=== PATIENT | male | born 1980 | race Caucasian/White ===

== ENCOUNTER 2021-12-20 01:24 | Inpatient (IN) | payer OTHER ==
[2021-12-20] MEDS ORDERED: SODIUM CHLORIDE 0.9% 1,000 ML IV STA (01:32)
[2021-12-20] MEDS ORDERED: IPRATROPIUM-ALBUTEROL 3 ML NEB INHALATION PRN (01:35)
[2021-12-20] MEDS ORDERED: NALOXONE 0.4 MG/ML 1 ML VIAL IV PRN (01:35)
--- NOTE | 2021-12-20 01:35 | ED ---
Recheck HPI - General Stated Complaint: Overdose Time Seen by Provider: 12/20/21 01:27 Source: RN notes reviewed, old records reviewed Mode of arrival: EMS Limitations: physical limitation - History of Present Illness Initial Comments: This is a 41-year-old male who presents intubated for overdose. Patient is accepted from outside facility for evaluation and management. Unable to provide history from the patient patient allegedly took some unknown polysubstance or polypharmacy prior to arrival. Patient remained unresponsive at outside facility. Complaint: other (Acute restaurant failure) -: hour(s) Returns Today for: other (Acute respiratory failure accepted in transfer) Symptoms Since Prior Visit: no new symptoms Context: planned re-check Associated Symptoms: none Treatments Prior to Arrival: other medications (A she was given multiple doses of Narcan with no improvement) Review of Systems ROS Statement: Those systems with pertinent positive or pertinent negative responses have been documented in the HPI. ROS Other: All systems not noted in ROS Statement are negative. General Exam Limitations: altered mental status, physical limitation General appearance: alert, lethargic, obtunded Head exam: Present: atraumatic, normocephalic, normal inspection Eye exam: Present: normal appearance, PERRL, EOMI. Absent: scleral icterus, conjunctival injection, periorbital swelling ENT exam: Present: normal exam, mucous membranes moist Neck exam: Present: normal inspection. Absent: tenderness, meningismus, lymphadenopathy Respiratory exam: Present: normal lung sounds bilaterally. Absent: respiratory distress, wheezes, rales, rhonchi, stridor Cardiovascular Exam: Present: regular rate, normal rhythm, normal heart sounds. Absent: systolic murmur, diastolic murmur, rubs, gallop, clicks GI/Abdominal exam: Present: soft, normal bowel sounds. Absent: distended, tenderness, guarding, rebound, rigid Extremities exam: Present: normal inspection, full ROM, normal capillary refill. Absent: tenderness, pedal edema, joint swelling, calf tenderness Back exam: Present: normal inspection Neurological exam: Present: alert, oriented X3, CN II-XII intact Psychiatric exam: Present: normal affect, normal mood Skin exam: Present: warm, dry, intact, normal color. Absent: rash Course Vital Signs 12/20/21 12/20/21 01:33 01:55 Temperature 97.9 F 97.9 F Pulse Rate 83 80 Respiratory 17 20 Rate Blood Pressure 108/72 108/72 O2 Sat by Pulse 100 99 Oximetry - Reevaluation(s) Reevaluation #1: 12/20/21 02:09 Medical record is reviewed 12/20/21 02:09 Transferring paperwork is been reviewed Reevaluation #2: 12/20/21 02:09 Patient in no distress throughout ER stay - Consultations Consultation #1: Spoke with ICU regarding admission there agreeable Consultation #2: Spoke with [facility] who agree to admission Medical Decision Making - Medical Decision Making 41 male with polypharmacy and overdose. Unresponsiveness noted patient secondary to respiratory failure. Patient did ICU for further evaluation management - Lab Data Result diagrams: 12/20/21 01:51 Lab Results 12/20/21 Range/Units 01:51 WBC 19.0 H (3.8-10.6) k/uL RBC 4.94 (4.30-5.90) m/uL Hgb 15.2 (13.0-17.5) gm/dL Hct 46.2 (39.0-53.0) % MCV 93.5 (80.0-100.0) fL MCH 30.8 (25.0-35.0) pg MCHC 32.9 (31.0-37.0) g/dL RDW 14.0 (11.5-15.5) % Plt Count 253 (150-450) k/uL MPV 8.1 Neutrophils % 82 % Lymphocytes % 10 % Monocytes % 6 % Eosinophils % 1 % Basophils % 0 % Neutrophils # 15.7 H (1.3-7.7) k/uL Lymphocytes # 1.9 (1.0-4.8) k/uL Monocytes # 1.1 H (0-1.0) k/uL Eosinophils # 0.1 (0-0.7) k/uL Basophils # 0.1 (0-0.2) k/uL - EKG Data -: EKG Interpreted by Me (EKG shows sinus rhythm 78 MA 171 QRS 90 QTC 393) - Radiology Data Radiology results: report reviewed (Chest x-ray shows positive ET tube p lacement), image reviewed Critical Care Time Critical Care Time: Yes Total Critical Care Time: 31 Disposition Clinical Impression: Accidental drug overdose, Poisoning by opiates and related narcotics, other, Drug overdose, Acute respiratory failure Disposition: ADMITTED IP TO THIS [facility] Condition: Fair Is patient prescribed a controlled substance at d/c from ED?: No Referrals: None,Stated [Primary Care Provider] - 1-2 days
[2021-12-20 02:00] LABS: Basophils # (A) 0.1 k/uL (0-0.2); Basophils % (A) 0 %; Eosinophils # (A) 0.1 k/uL (0-0.7); Eosinophils % (A) 1 %; HCT 46.2 % (39.0-53.0); HGB 15.2 gm/dL (13.0-17.5); Lymphocytes # (A) 1.9 k/uL (1.0-4.8); Lymphocytes % (A) 10 %; MCH 30.8 pg (25.0-35.0); MCHC 32.9 g/dL (31.0-37.0); MCV 93.5 fL (80.0-100.0); Mean Platelet Volume 8.1; Monocytes # (A) 1.1 k/uL (0-1.0); Monocytes % (A) 6 %; Neutrophils # (A) 15.7 k/uL (1.3-7.7); Neutrophils % (A) 82 %; Platelet Count 253 k/uL (150-450); RBC 4.94 m/uL (4.30-5.90)
[2021-12-20 02:13] LABS: ALT 64 U/L (4-49); AST 68 U/L (17-59); African American GFR (CKD) >90 (>60 ml/min/1.73 sqM); Albumin 4.7 g/dL (3.5-5.0); Alkaline Phosphatase 48 U/L (38-126); Anion Gap 11 mmol/L; Blood Urea Nitrogen 21 mg/dL (9-20); Calcium 8.7 mg/dL (8.4-10.2); Carbon Dioxide 19 mmol/L (22-30); Chloride 108 mmol/L (98-107); Glucose 147 mg/dL (74-99); Lipase 142 U/L (23-300); Magnesium 1.9 mg/dL (1.6-2.3); Non-African American GFR(CKD) >90 (>60 ml/min/1.73 sqM); Phosphorus 4.6 mg/dL (2.5-4.5); Sodium 138 mmol/L (137-145); Total Bilirubin 1.3 mg/dL (0.2-1.3); Total Protein 7.8 g/dL (6.3-8.2)
[2021-12-20 02:14] LABS: ABG Base Excess -1.1 mmol/L; ABG HCO3 25 mmol/L (21-25); ABG Oxygen Saturation 99.2 % (94-97); ABG PCO2 47 mmHg (35-45); ABG PH 7.33 (7.35-7.45); ABG PO2 274 mmHg (83-108); ABG TCO2 26 mmol/L (19-24); Allen Test Performed? Yes
[2021-12-20 02:16] LABS: INR 0.9 (<1.2); Prothrombin Time 10.3 sec (9.0-12.0)
[2021-12-20 02:17] LABS: Partial Thromboplastin Time 18.9 sec (22.0-30.0)
[2021-12-20 02:27] LABS: Potassium 7.8 mmol/L (3.5-5.1)
--- NOTE | 2021-12-20 02:31 | XR ---
EXAMINATION TYPE: XR chest 1V portable DATE OF EXAM: 12/20/2021 COMPARISON: NONE HISTORY: Respiratory failure TECHNIQUE: 2 views supine FINDINGS: The endotracheal tube is 4 cm from the [place]. There is pulmonary interstitial and mild air space edema. Heart appears slightly enlarged. There is nasogastric tube in the stomach. There is some coalescent density right lower lobe. IMPRESSION: Pulmonary edema. Right lower lobe infiltrate. Tubing in good position.
[2021-12-20] MEDS ORDERED: PNEUMONIA PROTOCOL UTILIZED 1 EACH MISC PO PRN (02:38)
[2021-12-20] MEDS ORDERED: AZITHROMYCIN 500 MG in SODIUM CHLORIDE 0.9% 250 ML IVPB STA (02:38)
[2021-12-20] MEDS ORDERED: CLINDAMYCIN 600 MG in DEXTROSE 5% IN WATER 50 ML IVPB STA ×2 (02:40)
[2021-12-20 03:16] LABS: Appearance,Urine Cloudy (Clear); Bacteria,Urine Rare /hpf; Bilirubin,Urine Negative (Negative); Blood,Urine Small (Negative); Color,Urine Yellow; Glucose,Urine (UA) 2+ (Negative); Hyaline Casts,Urine 1 /lpf (0-2); Ketones,Urine Negative (Negative); Leukocyte Esterase,Urine Negative (Negative); Mucus,Urine Rare /hpf; Nitrite,Urine Negative (Negative); Protein,Urine Negative (Negative); RBC,Urine 9 /hpf (0-5); Specific Gravity,Urine 1.018 (1.001-1.035); Urobilinogen,Urine <2.0 mg/dL (<2.0); WBC,Urine 1 /hpf (0-5)
[2021-12-20 03:17] LABS: ALT 64 U/L (4-49); AST 57 U/L (17-59); African American GFR (CKD) >90 (>60 ml/min/1.73 sqM); Albumin 4.4 g/dL (3.5-5.0); Alkaline Phosphatase 55 U/L (38-126); Anion Gap 10 mmol/L; Blood Urea Nitrogen 21 mg/dL (9-20); Calcium 8.9 mg/dL (8.4-10.2); Carbon Dioxide 22 mmol/L (22-30); Chloride 107 mmol/L (98-107); Glucose 137 mg/dL (74-99); Non-African American GFR(CKD) >90 (>60 ml/min/1.73 sqM); Potassium 5.6 mmol/L (3.5-5.1); Sodium 139 mmol/L (137-145); Total Bilirubin 0.8 mg/dL (0.2-1.3); Total Protein 7.4 g/dL (6.3-8.2)
[2021-12-20 03:58] LABS: Glucose,Whole Blood 113 mg/dL (75-99)
[2021-12-20 04:32] LABS: VBG PH 7.28 (7.31-7.41)
[2021-12-20 06:18] LABS: Glucose,Whole Blood 110 mg/dL (75-99)
[2021-12-20] MEDS: SODIUM CHLORIDE 0.9% 1,000 ML IV SCH (10:32)
[2021-12-20] MEDS: ENOXAPARIN 40 MG/0.4 ML SYRINGE SQ SCH (10:38)
[2021-12-20 11:51] LABS: Glucose,Whole Blood 120 mg/dL (75-99)
[2021-12-20] MEDS: CLINDAMYCIN 600 MG in DEXTROSE 5% IN WATER 50 ML IVPB SCH ×4 (12:26→20:40)
--- NOTE | 2021-12-20 13:17 | P.CNPUL ---
<Erin Harris - Last Filed: 12/20/21 13:02> History of Present Illness Consult date: 12/20/21 Requesting physician: Sima Kent Reason for consult: hypoxemia, abnormal CXR/CT (Critical care management) Chief complaint: suspected drug overdose History of present illness: This is a 41-year-old male patient with a known history of hypertension, hyperlipidemia, diabetes mellitus, anxiety, chronic back pain leading to left leg weakness, chronic and ongoing tobacco dependence. He also has a history of heroin and crack cocaine use in the past. Last evening he was out to dinner with his and while driving home they stopped at his friend's house. He apparently went into the house while she waited in the car and when he came out go back in the car he was soon asleep. She had not initially been concerned because he falls asleep after meals often. Then she was unable to wake him and drove to [place] emergency room where the patient was mainly unresponsive requiring intubation mechanical ventilatory support. He was subsequently transferred to our emergency room and then to the ICU at 4 AM this morning. Cur rent vent settings are assist-control at a rate of 20, tidal been 450, FiO2 50% and a PEEP of 5. Morning blood gases reveal a P O2 of 274, pCO2 47 and a pH of 7.33. That was on 100% FiO2. He is intubated with a #7.5 endotracheal tube which is secured at 24 cm at the lip. He is sedated on propofol 50 mcg/kg/m. He has 0.9 normal saline running at 130 ML's per hour. Urine drug screen did reveal evidence of cocaine, opiates, benzodiazepines, a cyclic antidepressants. CAT scan of the head revealed no significant intracranial abnormality per report from the ER. He is seen in consultation in the ICU. He is arousable. He is moving all fours at times. He is reaching for the endotracheal tube. Sedation has been adjusted. His pupils are pinpoint but reactive and equal. X-ray revealed some evidence of pulmonary interstitial mild airspace edema. Some density of the right lower lobe. He's been initiated on ceftriaxone, clindamycin and azithromycin. White count 19.0. Hemoglobin 15.2. Sodium 139. Potassium 5.6. Chloride 107. Bicarb 22. BUN 21. Creatinine 0.79. Glucose 137. Troponin 0.041. ProBNP 103. Gruber virus by PCR not detected. Pro- calcitonin pending. Review of Systems ROS unobtainable: due to endotracheal tube Medications and Allergies Home Medications Medication Instructions Recorded Confirmed Type ALPRAZolam [Xanax] 0.5 mg PO DAILY 12/20/21 12/20/21 History Atorvastatin [Lipitor] 40 mg PO HS 12/20/21 12/20/21 History Celecoxib [CeleBREX] 100 mg PO BID 12/20/21 12/20/21 History DULoxetine HCL [Cymbalta] 60 mg PO DAILY 12/20/21 12/20/21 History Diclofenac Sodium 50 mg PO BID 12/20/21 12/20/21 History Dulaglutide [Trulicity] 0.75 mg SQ Q7D 12/20/21 12/20/21 History Gabapentin 600 mg PO TID 12/20/21 12/20/21 History HYDROcodone/APAP 7.5-325MG [[place]uffman 1 tab PO Q6H 12/20/21 12/20/21 History 7.5-325] Pioglitazone [Actos] 30 mg PO DAILY 12/20/21 12/20/21 History QUEtiapine [SEROquel] 100 mg PO HS 12/20/21 12/20/21 History lisinopriL 30 mg PO DAILY 12/20/21 12/20/21 History methocarbamoL [Robaxin] 1,000 mg PO Q8H PRN 12/20/21 12/20/21 History traZODone HCL 300 mg PO HS 12/20/21 12/20/21 History Allergies Allergy/AdvReac Type Severity Reaction Status Date / Time Penicillins Allergy Intermediate Swelling Verified 12/20/21 12:09 Physical Exam Vitals: Vital Signs Temp Pulse Resp BP Pulse Ox 12/20/21 07:00 72 20 113/75 98 12/20/21 06:00 75 20 109/72 98 12/20/21 05:00 76 20 130/77 98 12/20/21 04:00 98.5 F 78 20 137/71 100 12/20/21 03:00 76 20 114/75 100 12/20/21 02:15 77 20 115/84 100 12/20/21 01:55 97.9 F 80 20 108/72 99 12/20/21 01:33 97.9 F 83 17 108/72 100 Intake and Output 02/24/22 02/25/22 02/25/22 22:59 06:59 14:59 Intake Total 589.391 205.409 Output Total 500 100 Balance 89.391 105.409 Intake: IV 520 130 Sodium Chloride 0.9% 1, 520 130 000 ml @ 130 mls/hr IV . Q7H42M STA Rx#:[id number] Intake, IV Titration 69.391 75.409 Amount Clindamycin 600 mg In 50 Dextrose 5% in Water 50 ml @ 50 mls/hr IVPB ONCE STA Rx#:[id number] propofoL 1,000 mg In 19.391 75.409 Empty Bag 1 bag @ Titrate IV .Q0M SUNI Rx#: [id number] Output: Urine 500 100 Other: Voiding Method Indwelling Catheter Weight 113.9 kg GENERAL EXAM: Intubated, sedated 41-year-old male patient, comfortable in no apparent distress. HEAD: Normocephalic. EYES: Sluggish reaction of pupils, pinpoint, equal. NOSE: Clear with pink turbinates. THROAT: Oral endotracheal and gastric tube secured in place. No erythema or exudates. NECK: No masses, no JVD. CHEST: No chest wall deformity. LUNGS: Equal air entry with few scattered rhonchi, crackles in the right lung base. CVS: S1 and S2 normal with no audible murmur, regular rhythm. ABDOMEN: No hepatosplenomegaly, normal bowel sounds, no guarding or rigidity. SPINE: No scoliosis or deformity SKIN: No rashes CENTRAL NERVOUS SYSTEM: No focal deficits, tone is normal in all 4 extremities. EXTREMITIES: There is no peripheral edema. No clubbing, no cyanosis. Peripheral pulses are intact. Results - Laboratory Findings CBC and BMP: 12/20/21 01:51 12/20/21 02:45 ABG ABG pH 7.33 (7.35-7.45) L 12/20/21 02:11 ABG pCO2 47 mmHg (35-45) H 12/20/21 02:11 ABG pO2 274 mmHg (83-108) H 12/20/21 02:11 ABG O2 Saturation 99.2 % (94-97) H 12/20/21 02:11 PT/INR, D-dimer PT 10.3 sec (9.0-12.0) 12/20/21 01:51 INR 0.9 (<1.2) 12/20/21 01:51 Abnormal lab findings: Abnormal Labs 12/20/21 12/20/21 12/20/21 01:51 01:51 01:51 WBC 19.0 H Neutrophils # 15.7 H Monocytes # 1.1 H APTT 18.9 L ABG pH ABG pCO2 ABG pO2 ABG Total CO2 ABG O2 Saturation VBG pH VBG pCO2 Potassium Chloride Carbon Dioxide BUN Glucose POC Glucose (mg/dL) Plasma Lactic Acid Robert Phosphorus AST ALT Troponin I Urine Glucose (UA) 2+ H Urine Blood Small H Urine RBC 9 H Urine Bacteria Rare H Urine Mucus Rare H 12/20/21 12/20/21 12/20/21 01:51 01:51 01:51 WBC Neutrophils # Monocytes # APTT ABG pH ABG pCO2 ABG pO2 ABG Total CO2 ABG O2 Saturation VBG pH VBG pCO2 Potassium 7.8 H* Chloride 108 H Carbon Dioxide 19 L BUN 21 H Glucose 147 H POC Glucose (mg/dL) Plasma Lactic Acid Robert 3.0 H* Phosphorus 4.6 H AST 68 H ALT 64 H Troponin I 0.044 H* Urine Glucose (UA) Urine Blood Urine RBC Urine Bacteria Urine Mucus 12/20/21 12/20/21 12/20/21 02:11 02:45 02:45 WBC Neutrophils # Monocytes # APTT ABG pH 7.33 L ABG pCO2 47 H ABG pO2 274 H ABG Total CO2 26 H ABG O2 Saturation 99.2 H VBG pH VBG pCO2 Potassium 5.6 H Chloride Carbon Dioxide BUN 21 H Glucose 137 H POC Glucose (mg/dL) Plasma Lactic Acid Robert Phosphorus AST ALT 64 H Troponin I 0.047 H* Urine Glucose (UA) Urine Blood Urine RBC Urine Bacteria Urine Mucus 12/20/21 12/20/21 12/20/21 03:22 03:57 05:31 WBC Neutrophils # Monocytes # APTT ABG pH ABG pCO2 ABG pO2 ABG Total CO2 ABG O2 Saturation VBG pH 7.28 L VBG pCO2 54 H Potassium Chloride Carbon Dioxide BUN Glucose POC Glucose (mg/dL) 113 H Plasma Lactic Acid Robert Phosphorus AST ALT Troponin I 0.041 H* Urine Glucose (UA) Urine Blood Urine RBC Urine Bacteria Urine Mucus 12/20/21 06:17 WBC Neutrophils # Monocytes # APTT ABG pH ABG pCO2 ABG pO2 ABG Total CO2 ABG O2 Saturation VBG pH VBG pCO2 Potassium Chloride Carbon Dioxide BUN Glucose POC Glucose (mg/dL) 110 H Plasma Lactic Acid Robert Phosphorus AST ALT Troponin I Urine Glucose (UA) Urine Blood Urine RBC Urine Bacteria Urine Mucus - Diagnostic Findings Chest x-ray: image reviewed Assessment and Plan Assessment: 1 Acute hypoxemic respiratory failure requiring intubation mechanical ventilation on 12/19/2021 at an outside facility and subsequent transferred here for further care 2 Altered mental status secondary to suspected drug overdose with urine drug screen positive for cocaine, opiates, benzodiazepines and tricyclic antidepressants 3 History of heroin and crack use however the patient's had stated she thought he had not been using seen in quite some time 4 Leukocytosis 5 Troponin leak 6 History of hypertension 7 Hyperlipidemia 8 Diabetes mellitus 9 History of anxiety 10 History of degenerative disc disease with left lower extremity weakness Plan: The patient was seen and evaluated Chest x-ray, ABGs and labs reviewed Outside facility information reviewed Titrate the FiO2 as tolerated Continue antibiotics, bronchodilators Continue sedation for now Lovenox for DVT prophylaxis Continue saline at 75 mL per hour Continue daily interruption of sedation Follow-up chest x-ray, labs and ABGs in the a.m. We will continue to follow and make further recommendations based on his clinical status I, the cosigning physician, performed a history & physical examination of the patient. Lungs sounds with few scattered rhonchi, crackles in the right base. Maintaining good O2 saturations in the 90s on 50% FiO2 and a PEEP of 5 via the mechanical ventilator. I discussed the assessment and plan of care with my nurse practitioner, Erin Harris. I attest to the above consultation as dictated by her. I have personally seen and examined the patient, performed the documentation and the assessment and plan as written. Number of minutes spent on the visit: 20. <Jessica Quintana - Last Filed: 12/20/21 18:54> Physical Exam Vitals: Vital Signs Temp Pulse Pulse Resp BP BP Pulse Ox 12/20/21 18:00 87 20 117/70 99 12/20/21 17:00 88 21 141/76 99 12/20/21 16:00 100.0 F H 87 22 142/84 97 12/20/21 15:00 74 20 119/81 100 12/20/21 14:00 79 20 98/61 97 12/20/21 13:00 79 20 101/61 96 12/20/21 12:00 98.3 F 80 21 102/64 97 12/20/21 11:00 77 20 109/68 100 12/20/21 10:00 77 20 129/78 98 12/20/21 09:30 98.4 F 80 21 129/78 97 12/20/21 09:00 87 20 119/79 99 12/20/21 08:00 98.4 F 71 20 128/82 99 12/20/21 07:00 72 20 113/75 98 12/20/21 06:00 75 20 109/72 98 12/20/21 05:00 76 20 130/77 98 12/20/21 04:00 98.5 F 78 20 137/71 100 12/20/21 03:00 76 20 114/75 100 12/20/21 02:15 77 20 115/84 100 12/20/21 01:55 97.9 F 80 20 108/72 99 12/20/21 01:33 97.9 F 83 17 108/72 100 Intake and Output 12/20/21 12/20/21 12/20/21 06:59 14:59 22:59 Intake Total 237.867 0148.409 250 Output Total 500 670 300 Balance 89.391 425.409 -50 Intake: IV 520 820 150 Sodium Chloride 0.9% 1, 520 595 000 ml @ 130 mls/hr IV . Q7H42M STA Rx#:[id number] Sodium Chloride 0.9% 1, 225 150 000 ml @ 75 mls/hr IV . [id number] SUNI Rx#:[id number] Intake, IV Titration 69.391 275.409 100 Amount Clindamycin 600 mg In 50 Dextrose 5% in Water 50 ml @ 50 mls/hr IVPB ONCE STA Rx#:[id number] propofoL 1,000 mg In 19.391 275.409 100 Empty Bag 1 bag @ Titrate IV .Q0M SUNI Rx#: [id number] Output: Urine 500 670 300 Other: Voiding Method Indwelling Catheter Indwelling Catheter Indwelling Catheter Weight 113.9 kg 113.9 kg Results - Laboratory Findings CBC and BMP: 12/20/21 01:51 12/20/21 02:45 ABG ABG pH 7.33 (7.35-7.45) L 12/20/21 02:11 ABG pCO2 47 mmHg (35-45) H 12/20/21 02:11 ABG pO2 274 mmHg (83-108) H 12/20/21 02:11 ABG O2 Saturation 99.2 % (94-97) H 12/20/21 02:11 PT/INR, D-dimer PT 10.3 sec (9.0-12.0) 12/20/21 01:51 INR 0.9 (<1.2) 12/20/21 01:51 Abnormal lab findings: Abnormal Labs 12/20/21 12/20/21 12/20/21 01:51 01:51 01:51 WBC 19.0 H Neutrophils # 15.7 H Monocytes # 1.1 H APTT 18.9 L ABG pH ABG pCO2 ABG pO2 ABG Total CO2 ABG O2 Saturation VBG pH VBG pCO2 Potassium Chloride Carbon Dioxide BUN Glucose POC Glucose (mg/dL) Hemoglobin A1c Plasma Lactic Acid Robert Phosphorus AST ALT Troponin I Procalcitonin Urine Glucose (UA) 2+ H Urine Blood Small H Urine RBC 9 H Urine Bacteria Rare H Urine Mucus Rare H 12/20/21 12/20/21 12/20/21 01:51 01:51 01:51 WBC Neutrophils # Monocytes # APTT ABG pH ABG pCO2 ABG pO2 ABG Total CO2 ABG O2 Saturation VBG pH VBG pCO2 Potassium 7.8 H* Chloride 108 H Carbon Dioxide 19 L BUN 21 H Glucose 147 H POC Glucose (mg/dL) Hemoglobin A1c Plasma Lactic Acid Robert 3.0 H* Phosphorus 4.6 H AST 68 H ALT 64 H Troponin I 0.044 H* Procalcitonin Urine Glucose (UA) Urine Blood Urine RBC Urine Bacteria Urine Mucus 12/20/21 12/20/21 12/20/21 02:11 02:45 02:45 WBC Neutrophils # Monocytes # APTT ABG pH 7.33 L ABG pCO2 47 H ABG pO2 274 H ABG Total CO2 26 H ABG O2 Saturation 99.2 H VBG pH VBG pCO2 Potassium 5.6 H Chloride Carbon Dioxide BUN 21 H Glucose 137 H POC Glucose (mg/dL) Hemoglobin A1c Plasma Lactic Acid Robert Phosphorus AST ALT 64 H Troponin I 0.047 H* Procalcitonin Urine Glucose (UA) Urine Blood Urine RBC Urine Bacteria Urine Mucus 12/20/21 12/20/21 12/20/21 03:22 03:57 05:31 WBC Neutrophils # Monocytes # APTT ABG pH ABG pCO2 ABG pO2 ABG Total CO2 ABG O2 Saturation VBG pH 7.28 L VBG pCO2 54 H Potassium Chloride Carbon Dioxide BUN Glucose POC Glucose (mg/dL) 113 H Hemoglobin A1c Plasma Lactic Acid Robert Phosphorus AST ALT Troponin I 0.041 H* Procalcitonin Urine Glucose (UA) Urine Blood Urine RBC Urine Bacteria Urine Mucus 12/20/21 12/20/21 12/20/21 06:17 10:42 10:42 WBC Neutrophils # Monocytes # APTT ABG pH ABG pCO2 ABG pO2 ABG Total CO2 ABG O2 Saturation VBG pH VBG pCO2 Potassium Chloride Carbon Dioxide BUN Glucose POC Glucose (mg/dL) 110 H Hemoglobin A1c 7.1 H Plasma Lactic Acid Robert Phosphorus AST ALT Troponin I Procalcitonin 2.82 H Urine Glucose (UA) Urine Blood Urine RBC Urine Bacteria Urine Mucus 12/20/21 11:49 WBC Neutrophils # Monocytes # APTT ABG pH ABG pCO2 ABG pO2 ABG Total CO2 ABG O2 Saturation VBG pH VBG pCO2 Potassium Chloride Carbon Dioxide BUN Glucose POC Glucose (mg/dL) 120 H Hemoglobin A1c Plasma Lactic Acid Robert Phosphorus AST ALT Troponin I Procalcitonin Urine Glucose (UA) Urine Blood Urine RBC Urine Bacteria Urine Mucus Assessment and Plan Assessment: This is a critically care evaluation was done and more than 40 minutes. The patient was seen and evaluated and examined along with the nurse practitioner. The patient is currently sedated on propofol and he remains on a mechanical ventilator. Following our initial evaluation, the patient started having seizure activity. The patient accordingly was given Ativan. Protocol was completed and the patient was started on Keppra. A neurologic consultation will be also initiated. Meanwhile, the Zithromax was discontinued and the patient will be kept on a combination of Rocephin and clindamycin regarding possibility of an aspiration pneumonia. Follow-up chest x-ray in the morning. Follow blood gases. No plans for extubation special with underlying seizure activity. We'll continue to follow. Critically care evaluation. Time with Patient: Greater than 30
--- NOTE | 2021-12-20 13:44 | P.HPIM ---
History of Present Illness This is a 41 years old male with a known past medical history. Presents intubated. Patient could not provide information. Information were obtained from staff and records. Looks like patient presented with polypharmacy and overdose, he was unresponsive and respiratory failure. He presents with intubation for overdose. As per staff patient went with his for dinner and underwent back they visited a friend who was recently released from residential, does not know what has been dictated inside his friend house but once he came back he slept in the car and she could not pick him up so she drove him to the emergency room. The recurrent patient was prescribed Cymbalta, Xanax on [place] at home Vitas looks stable here and patient is afebrile. His FiO2 of 50% and saturation 97% Labs showing leukocytosis of 19,000, rest of CBC is unremarkab potassium elevated le. INR 0.9. PH 7.3, pCO2 slightly high as 47 and pO2 of 2. 74. On FiO2 of 100%. Creatinine normal 0.7. Potassium is elevated at 7.8 came down to 5.6. Liver enzymes not significantly elevated, bilirubin is normal 0.8. ProBNP is low 103, TSH is normal 1.4, lipase normal 142, Urine analysis showed 2+ glucose, small blood, no evidence of infection. Troponin is elevated 0.042, lactic acid normal at 1.4, glucose controlled 113 and one 10. Venous pH is slow 7.2 and pCO2 54 and PA-C on 325. Coronavirus not detected. on reviewing bad ax records: Urine drug screen was positive for benzodiazepine, cocaine, opiates and tricyclic antidepressant EKG: Showing sinus tachycardia at 115 with moderate T-wave abnormality consider anterolateral ischemia which was noticed on the the . With QTC 519. Call the test not detected, the rapid test. Urine analysis is 2+ glucose, trace is unremarkable WBCs 21.5, hemoglobin is 14.8, platelet count 281. Sodium 138, potassium 4.4, alcohol 0, amylase 60 which is within the reference range, lipase 151 which is normal, glucose elevated 387, magnesium 2.3, creatinine is 1.3, liver enzymes slightly elevated AST 39 and ALT 82, troponin is -0.0. CK is 107 which is within the reference, ammonia slightly elevated 36 As per documentation patient went to the emergency room with his old in front of the EMS secondary today, states that the patient went unresponsive while they are driving home [place] patient was abdominally breathing, purple, forming in the mouth, Narcan was given, glucose was 347, patient was breathing approximately 8 times per minute, then another 4 mg of Narcan given. It was improvement in breathing rate went up to 12. Then a third 4 mg of Narcan given. His GCS was 3 therefore patient was intubated CT of the brain showing no evidence of acute CVA intracranial hemorrhage or mass effect per report Review of Systems CONSTITUTIONAL: No fever, no malaise, no fatigue. HEENT: No recent visual problems or hearing problems. Denied any sore throat. CARDIOVASCULAR: No orthopnea, PND, no palpitations, no syncope. PULMONARY: No shortness of breath, no cough, no hemoptysis. GASTROINTESTINAL: No diarrhea, no nausea, no vomiting, no abdominal pain. Normoactive bowel sounds. NEUROLOGICAL: No headaches, no weakness, no numbness. HEMATOLOGICAL: Denies any bleeding or petechiae. GENITOURINARY: Denies any burning micturition, frequency, or urgency. MUSCULOSKELETAL/RHEUMATOLOGICAL: Denies any joint pain, swelling, or any muscle pain. ENDOCRINE: Denies any polyuria or polydipsia. Medications and Allergies Allergies Allergy/AdvReac Type Severity Reaction Status Date / Time Penicillins Allergy Intermediate Swelling Verified 12/20/21 02:23 Physical Exam Vitals: Vital Signs Temp Pulse Pulse Resp BP BP Pulse Ox 12/20/21 09:30 98.4 F 80 21 129/78 97 12/20/21 07:00 72 20 113/75 98 12/20/21 06:00 75 20 109/72 98 12/20/21 05:00 76 20 130/77 98 12/20/21 04:00 98.5 F 78 20 137/71 100 12/20/21 03:00 76 20 114/75 100 12/20/21 02:15 77 20 115/84 100 12/20/21 01:55 97.9 F 80 20 108/72 99 12/20/21 01:33 97.9 F 83 17 108/72 100 Intake and Output 12/19/21 12/20/21 12/20/21 22:59 06:59 14:59 Intake Total 589.391 205.409 Output Total 500 100 Balance 89.391 105.409 Intake: IV 520 130 Sodium Chloride 0.9% 1, 520 130 000 ml @ 130 mls/hr IV . [id number] [facility] Rx#:[id number] Intake, IV Titration 69.391 75.409 Amount Clindamycin 600 mg In 50 Dextrose 5% in Water 50 ml @ 50 mls/hr IVPB ONCE STA Rx#:[id number] propofoL 1,000 mg In 19.391 75.409 Empty Bag 1 bag @ Titrate IV .Q0M [facility] Rx#: [id number] Output: Urine 500 100 Other: Voiding Method Indwelling Catheter Weight 113.9 kg GENERAL: The patient is alert and oriented x3, not in any acute distress. Well developed, well nourished. HEENT: Pupils are round and equally reacting to light. EOMI. No scleral icterus. No conjunctival pallor. Normocephalic, atraumatic. No pharyngeal erythema. No thyromegaly. CARDIOVASCULAR: S1 and S2 present. No murmurs, rubs, or gallops. PULMONARY: Chest is clear to auscultation, no wheezing or crackles. ABDOMEN: Soft, nontender, nondistended, normoactive bowel sounds. No palpable organomegaly. MUSCULOSKELETAL: No joint swelling or deformity. EXTREMITIES: No cyanosis, clubbing, or pedal edema. NEUROLOGICAL: Gross neurological examination did not reveal any focal deficits. SKIN: No rashes. No petechiae Results CBC & Chem 7: 12/20/21 01:51 12/20/21 02:45 Labs: Abnormal Lab Results - Last 24 Hours (Table) 12/20/21 12/20/21 12/20/21 Range/Units 01:51 01:51 01:51 WBC 19.0 H (3.8-10.6) k/uL Neutrophils # 15.7 H (1.3-7.7) k/uL Monocytes # 1.1 H (0-1.0) k/uL APTT 18.9 L (22.0-30.0) sec ABG pH (7.35-7.45) ABG pCO2 (35-45) mmHg ABG pO2 (83-108) mmHg ABG Total CO2 (19-24) mmol/L ABG O2 Saturation (94-97) % VBG pH (7.31-7.41) VBG pCO2 (37-51) mmHg Potassium (3.5-5.1) mmol/L Chloride (98-107) mmol/L Carbon Dioxide (22-30) mmol/L BUN (9-20) mg/dL Glucose (74-99) mg/dL POC Glucose (mg/dL) (75-99) mg/dL Plasma Lactic Acid Robert (0.7-2.0) mmol/L Phosphorus (2.5-4.5) mg/dL AST (17-59) U/L ALT (4-49) U/L Troponin I (0.000-0.034) ng/mL Urine Glucose (UA) 2+ H (Negative) Urine Blood Small H (Negative) Urine RBC 9 H (0-5) /hpf Urine Bacteria Rare H (None) /hpf Urine Mucus Rare H (None) /hpf 12/20/21 12/20/21 12/20/21 Range/Units 01:51 01:51 01:51 WBC (3.8-10.6) k/uL Neutrophils # (1.3-7.7) k/uL Monocytes # (0-1.0) k/uL APTT (22.0-30.0) sec ABG pH (7.35-7.45) ABG pCO2 (35-45) mmHg ABG pO2 (83-108) mmHg ABG Total CO2 (19-24) mmol/L ABG O2 Saturation (94-97) % VBG pH (7.31-7.41) VBG pCO2 (37-51) mmHg Potassium 7.8 H* (3.5-5.1) mmol/L Chloride 108 H (98-107) mmol/L Carbon Dioxide 19 L (22-30) mmol/L BUN 21 H (9-20) mg/dL Glucose 147 H (74-99) mg/dL POC Glucose (mg/dL) (75-99) mg/dL Plasma Lactic Acid Robert 3.0 H* (0.7-2.0) mmol/L Phosphorus 4.6 H (2.5-4.5) mg/dL AST 68 H (17-59) U/L ALT 64 H (4-49) U/L Troponin I 0.044 H* (0.000-0.034) ng/mL Urine Glucose (UA) (Negative) Urine Blood (Negative) Urine RBC (0-5) /hpf Urine Bacteria (None) /hpf Urine Mucus (None) /hpf 12/20/21 12/20/21 12/20/21 Range/Units 02:11 02:45 02:45 WBC (3.8-10.6) k/uL Neutrophils # (1.3-7.7) k/uL Monocytes # (0-1.0) k/uL APTT (22.0-30.0) sec ABG pH 7.33 L (7.35-7.45) ABG pCO2 47 H (35-45) mmHg ABG pO2 274 H (83-108) mmHg ABG Total CO2 26 H (19-24) mmol/L ABG O2 Saturation 99.2 H (94-97) % VBG pH (7.31-7.41) VBG pCO2 (37-51) mmHg Potassium 5.6 H (3.5-5.1) mmol/L Chloride (98-107) mmol/L Carbon Dioxide (22-30) mmol/L BUN 21 H (9-20) mg/dL Glucose 137 H (74-99) mg/dL POC Glucose (mg/dL) (75-99) mg/dL Plasma Lactic Acid Robert (0.7-2.0) mmol/L Phosphorus (2.5-4.5) mg/dL AST (17-59) U/L ALT 64 H (4-49) U/L Troponin I 0.047 H* (0.000-0.034) ng/mL Urine Glucose (UA) (Negative) Urine Blood (Negative) Urine RBC (0-5) /hpf Urine Bacteria (None) /hpf Urine Mucus (None) /hpf 12/20/21 12/20/21 12/20/21 Range/Units 03:22 03:57 05:31 WBC (3.8-10.6) k/uL Neutrophils # (1.3-7.7) k/uL Monocytes # (0-1.0) k/uL APTT (22.0-30.0) sec ABG pH (7.35-7.45) ABG pCO2 (35-45) mmHg ABG pO2 (83-108) mmHg ABG Total CO2 (19-24) mmol/L ABG O2 Saturation (94-97) % VBG pH 7.28 L (7.31-7.41) VBG pCO2 54 H (37-51) mmHg Potassium (3.5-5.1) mmol/L Chloride (98-107) mmol/L Carbon Dioxide (22-30) mmol/L BUN (9-20) mg/dL Glucose (74-99) mg/dL POC Glucose (mg/dL) 113 H (75-99) mg/dL Plasma Lactic Acid Robert (0.7-2.0) mmol/L Phosphorus (2.5-4.5) mg/dL AST (17-59) U/L ALT (4-49) U/L Troponin I 0.041 H* (0.000-0.034) ng/mL Urine Glucose (UA) (Negative) Urine Blood (Negative) Urine RBC (0-5) /hpf Urine Bacteria (None) /hpf Urine Mucus (None) /hpf 12/20/21 Range/Units 06:17 WBC (3.8-10.6) k/uL Neutrophils # (1.3-7.7) k/uL Monocytes # (0-1.0) k/uL APTT (22.0-30.0) sec ABG pH (7.35-7.45) ABG pCO2 (35-45) mmHg ABG pO2 (83-108) mmHg ABG Total CO2 (19-24) mmol/L ABG O2 Saturation (94-97) % VBG pH (7.31-7.41) VBG pCO2 (37-51) mmHg Potassium (3.5-5.1) mmol/L Chloride (98-107) mmol/L Carbon Dioxide (22-30) mmol/L BUN (9-20) mg/dL Glucose (74-99) mg/dL POC Glucose (mg/dL) 110 H (75-99) mg/dL Plasma Lactic Acid Robert (0.7-2.0) mmol/L Phosphorus (2.5-4.5) mg/dL AST (17-59) U/L ALT (4-49) U/L Troponin I (0.000-0.034) ng/mL Urine Glucose (UA) (Negative) Urine Blood (Negative) Urine RBC (0-5) /hpf Urine Bacteria (None) /hpf Urine Mucus (None) /hpf Assessment and Plan Assessment: Acute hypoxic respiratory failure requiring intubation Metabolic/toxic encephalopathy Drug overdose is suspected with urine drug screen was positive for benzodiazepine, cocaine, opiates and tricyclic antidepressant Elevated troponin Hyperkalemia, mild Elevated lactic acid, came back to normal Plan: This is a pleasant 41 years old male who presents with a EMS and respiratory failure status post intubation, drug overdose is suspected. Continue with mechanical ventilation with pulmonary/critical care team Continue with IV fluids normal saline Check echocardiogram and cardiology consult Continue with antibiotic, currently on ceftriaxone and clindamycin, and Zit hromax check B12, folate, ammonia level, TSH, blood culture , Procalcitonin Repeat chest x-rays and medication were reviewed.. Continue same treatment. Continue with symptomatic treatment. Resume home medication. Monitor lytes and vitals. DVT and GI prophylaxis. Further recommendations depends on the clinical course of the patient DVT prophylaxis: SubcLovenox GI Prophylaxis: Pepcid Prognosis is guarded
[2021-12-20] MEDS ORDERED: LORazepam 2 MG/ML INJ IV STA (15:44)
[2021-12-20] MEDS: levETIRAcetam IV 1,000 MG in SALINE 1 100ML.BAG IVPB SCH ×2 (16:04→20:40)
--- NOTE | 2021-12-20 17:48 | ECHOF ---
Referral Reason:Rule out heart disease MEASUREMENTS -------- HEIGHT: 180.3 cm WEIGHT: 113.9 kg BP: 129/78 IVSd: 1.5 cm (0.6 - 1.1) LVIDd: 3.1 cm (3.9 - 5.3) LVPWd: 1.3 cm (0.6 - 1.1) IVSs: 1.7 cm LVIDs: 2.0 cm LVPWs: 1.8 cm LAESV Index (A-L): 22.83 ml/m MV E Alex: 0.72 m/s MV DecT: 266 ms MV A Alex: 1.00 m/s MV E/A Ratio: 0.72 AV maxP.81 mmHg AV meanP.22 mmHg RAP: 5.00 mmHg RVSP: 22.91 mmHg FINDINGS -------- Sinus rhythm. This was a technically difficult study with suboptimal views. Pt. on a vent. The left ventricular size is normal. There is moderate concentric left ventricular hypertrophy. O verall left ventricular systolic function is normal with, an EF between 55 - 60 %. The RV was not well visualized. Normal LA size by volume 22+/-6 ml/m2. The right atrium was not well visualized. 5.0mg of Lumason was utilized for enhancement of images Interatrial and interventricular septum intact. The aortic valve was not well visualized. There is no evidence of aortic regurgitation. There is mild aortic stenosis present. The maximum velocity across the aortic valve is 2.28m/s. Peak/mean gradient across the Aortic Valve is 20.81mmHg / 13.22mmHg. The mitral valve was not well visualized. No mitral regurgitation. Mild tricuspid regurgitation present. Right ventricular systolic pressure is normal at < 35 mmHg. The right ventricular systolic pressure, as measured by Doppler, is 22.91mmHg. The pulmonic valve was not well visualized. There is no pericardial effusion. CONCLUSIONS -------- 1. This was a technically difficult study with suboptimal views. 2. There is moderate concentric left ventricular hypertrophy. 3. Overall left ventricular systolic function is normal with, an EF between 55 - 60 %. 4. There is mild aortic stenosis present. 5. The maximum velocity across the aortic valve is 2.28m/s. 6. Mild tricuspid regurgitation present. ESCROW CLOSER: Carly Akbar RDCS
[2021-12-20 19:08] LABS: Glucose,Whole Blood 151 mg/dL (75-99)
--- NOTE | 2021-12-20 20:24 | EEG ---
ELECTROENCEPHALOGRAM REPORT DATE OF SERVICE: 12/20/2021 PREAMBLE: This is a 41-year-old male with altered mental status. Patient is having tremoring, seizure-like activity. This EEG is performed to evaluate for any epileptiform activity. EEG FINDINGS: This is a 21-channel digital EEG recorded with video component, utilizing 10/20 international system with referential and bipolar montages. The recording starts and continues with presence of mixed frequencies of moderate to high amplitude 1-2 hertz generalized delta which sometimes becomes more rhythmic in nature. Superimposed fast frequency beta activity was also seen. Background does not seem to be reactive to eye opening or closing. Occasional transient short periods of suppression lasting for one second were seen. Perhaps some superimposed sleep was also seen with presence of sleep spindles. No clear-cut epileptiform activity was seen. IMPRESSION: This is an abnormal EEG due to: 1. Background slowing of moderate to severe degree suggestive of generalized cerebral dysfunction as can be seen with toxic metabolic encephalopathy or due to diffuse structural brain abnormality. 2. Superimposed fast frequency beta is suggestive of medication effect. 3. Intermittent generalized delta becomes somewhat rhythmic, which may suggest underlying convulsive tendency. No clear-cut electrographic seizure, however, was recorded. Clinical correlation and a follow-up EEG recommended as clinically indicated. MMODL / IJN: [id number] /
[2021-12-20] MEDS: CHLORHEXIDINE GLUCONATE 15 ML CUP MUCOUS MEM SCH (20:44)
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
[2021-12-20] MEDS: LORazepam 2 MG/ML INJ IV PRN (22:13)
[2021-12-21] MEDS: LORazepam 2 MG/ML INJ IV PRN ×2 (00:05→00:18)
[2021-12-21] MEDS ORDERED: PHENobarbital SODIUM 130 MG/ML 1 ML VIAL IV ONE ×2 (00:24→01:23)
[2021-12-21] MEDS ORDERED: PHENYTOIN SODIUM 50 MG/ML IVPB STA (00:24)
[2021-12-21 00:31] LABS: Glucose,Whole Blood 123 mg/dL (75-99)
[2021-12-21] MEDS ORDERED: SODIUM CHLORIDE 0.9% IVPB STA (00:35)
[2021-12-21] MEDS ORDERED: PHENYTOIN SODIUM IVPB STA (00:35)
[2021-12-21] MEDS ORDERED: LORazepam 2 MG/ML INJ IV PRN (01:24)
[2021-12-21] MEDS: SODIUM CHLORIDE 0.9% 1,000 ML IV SCH ×2 (01:36→15:19)
[2021-12-21] MEDS ORDERED: PHENobarbital SODIUM 130 MG/ML 1 ML VIAL IV PRN (03:24)
[2021-12-21] MEDS: CLINDAMYCIN 600 MG in DEXTROSE 5% IN WATER 50 ML IVPB SCH ×4 (03:37→11:55)
[2021-12-21] MEDS ORDERED: AZITHROMYCIN 500 MG in SODIUM CHLORIDE 0.9% 250 ML IVPB SCH (05:00)
[2021-12-21 05:24] VITALS: RESP 20
[2021-12-21 05:46] LABS: Glucose,Whole Blood 129 mg/dL (75-99)
[2021-12-21 06:03] LABS: ABG Base Excess 3.7 mmol/L; ABG HCO3 28 mmol/L (21-25); ABG Oxygen Saturation 97.2 % (94-97); ABG PCO2 45 mmHg (35-45); ABG PH 7.41 (7.35-7.45); ABG PO2 91 mmHg (83-108); ABG TCO2 30 mmol/L (19-24); Allen Test Performed? Yes
[2021-12-21 06:13] LABS: Basophils % (A) 0 %; Eosinophils # (A) 0.1 k/uL (0-0.7); Eosinophils % (A) 1 %; HGB 13.3 gm/dL (13.0-17.5); Lymphocytes # (A) 1.8 k/uL (1.0-4.8); Lymphocytes % (A) 17 %; MCH 30.7 pg (25.0-35.0); MCHC 33.3 g/dL (31.0-37.0); MCV 92.3 fL (80.0-100.0); Mean Platelet Volume 7.8; Monocytes # (A) 0.9 k/uL (0-1.0); Monocytes % (A) 8 %; Neutrophils # (A) 7.5 k/uL (1.3-7.7); Neutrophils % (A) 72 %; Platelet Count 182 k/uL (150-450); RBC 4.33 m/uL (4.30-5.90); RDW 13.4 % (11.5-15.5); WBC 10.4 k/uL (3.8-10.6)
[2021-12-21 06:34] LABS: ALT 41 U/L (4-49); AST 25 U/L (17-59); African American GFR (CKD) >90 (>60 ml/min/1.73 sqM); Albumin 3.3 g/dL (3.5-5.0); Alkaline Phosphatase 48 U/L (38-126); Anion Gap 5 mmol/L; Blood Urea Nitrogen 12 mg/dL (9-20); Calcium 7.6 mg/dL (8.4-10.2); Carbon Dioxide 26 mmol/L (22-30); Chloride 107 mmol/L (98-107); Glucose 148 mg/dL (74-99); Magnesium 1.9 mg/dL (1.6-2.3); Non-African American GFR(CKD) >90 (>60 ml/min/1.73 sqM); Phosphorus 2.6 mg/dL (2.5-4.5); Potassium 3.7 mmol/L (3.5-5.1); Sodium 138 mmol/L (137-145); Total Bilirubin 0.6 mg/dL (0.2-1.3); Total Protein 5.9 g/dL (6.3-8.2)
--- NOTE | 2021-12-21 07:24 | XR ---
EXAMINATION TYPE: XR chest 1V portable DATE OF EXAM: 12/21/2021 COMPARISON: Chest x-ray 12/20/2021 HISTORY: Intubated TECHNIQUE: Single frontal view of the chest is obtained. FINDINGS: Endotracheal tube and NG tube are overlying appropriate positions. There are overlying art ifacts, leads. There is no evident pneumothorax or sizable effusion. Cardiac mediastinal silhouette i s likely stable. Lung volumes are low, patient is rotated. Patchy basilar density persists, interstit ium is increased. IMPRESSION: Expiratory rotated exam, correlate for possible interstitial edema, difficult to exclude basilar effusion versus pneumonia, atelectasis or edema
[2021-12-21] MEDS: ENOXAPARIN 40 MG/0.4 ML SYRINGE SQ SCH (08:58)
[2021-12-21] MEDS: CHLORHEXIDINE GLUCONATE 15 ML CUP MUCOUS MEM SCH (08:58)
[2021-12-21] MEDS: levETIRAcetam IV 1,000 MG in SALINE 1 100ML.BAG IVPB SCH (08:58)
[2021-12-21 09:03] VITALS: BP 95/59
--- NOTE | 2021-12-21 09:41 | XR ---
EXAMINATION TYPE: XR chest 1V confirm line [facility] DATE OF EXAM: 12/21/2021 COMPARISON: Chest x-ray 12/21/2021 HISTORY: Status post central venous catheter placement TECHNIQUE: Single frontal view of the chest is obtained. FINDINGS: There has been interval placement of a left jugular central venous catheter, distal tip is at the cavoatrial junction. There is no evident pneumothorax or significant interval change. There i s overlying artifact. IMPRESSION: No evident complication status post central venous catheter placement.
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
--- NOTE | 2021-12-21 10:52 | P.PN ---
Subjective Progress Note Date: 12/21/21 I am seeing the patient for the first time during this admission. Please refer to Dr. Rosa's (Neuro-hospitalist) note for further details. Per the patient's nurse the patient had 3 seizures overnight and the last seizure was about 1 AM today. Per the patient nurse the patient had the shaking of his extremities, biting on the tube. The first episode lasted 2 minutes then the second episode lasted 10 minutes and the third episode lasted 5 minutes which was at [address] Rosa was contacted and per nurse he he wanted the patient to be transferred for long-term EEG but to be addressed in the morning. In the mean time he loaded the patient with Dilantin 2 g, patient was given also 10 mg Ativan. And the patient was continued on Keppra 1 g twice a day scheduled. Patient is currently on IV Prpofol 75mcg/kg/min. Objective - Vital Signs Vital signs: Vital Signs Temp 98.1 F 12/21/21 08:00 Pulse 68 12/21/21 10:00 Resp 20 12/21/21 10:00 BP 95/59 12/21/21 09:00 Pulse Ox 98 12/21/21 10:00 Intake & Output 12/20/21 12/21/21 12/21/21 18:59 06:59 18:59 Intake Total 0386.992 6458.007 425 Output Total 1055 1165 95 Balance 365.409 489.007 330 Weight 113.9 kg 118.5 kg Intake: IV 1045 1225 325 Clindamycin 600 mg In 50 Dextrose 5% in Water 50 ml @ 50 mls/hr IVPB Q8H [facility] Rx#:[id number] Phenytoin Sodium Inj 2, 100 000 mg In Sodium Chloride 0.9% 100 ml @ 200 mls/hr IVPB ONCE STA Rx#: [id number] Sodium Chloride 0.9% 1, 595 000 ml @ 130 mls/hr IV . Q7H42M [facility] Rx#:[id number] Sodium Chloride 0.9% 1, 450 975 225 000 ml @ 75 mls/hr IV . [id number] [facility] Rx#:[id number] levETIRAcetam IV 1,000 mg 100 100 In Saline 1 100ml.bag @ 400 mls/hr IVPB Q12HR [facility] Rx#:[id number] Intake, IV Titration 375.409 429.007 100 Amount propofoL 1,000 mg In 375.409 429.007 100 Empty Bag 1 bag @ Titrate IV .Q0M [facility] Rx#: [id number] Output: Urine 1055 1165 95 Other: Voiding Method Indwelling Catheter Indwelling Catheter Indwelling Catheter ABP, PAP, CO, CI - Last Documented Arterial Blood Pressure 118/61 - Exam GENERAL: The patient is lying in bed and does not seem in acute distress. LUNG: Intubated on vent. NEUROLOGICAL: Limited because of his condition and is on IV Prpofol 75mcg/kg/min. Higher mental function: The patient is comatose. GCS 3 ( E1, VT1, M1). Not following commands. Cranial nerves: I had to manually open his eyes. The primary eyes are midline. The pupils are round (2mm), equal and reactive to light and accommodation. Is breathing over the vent. Positive gag reflex. Motor: Could not assess strength. Normal tone. No spontaneous movement noted. Cerebellum: Unable to assess. Sensation: Could not assess light touch. - Labs CBC & Chem 7: 12/21/21 05:55 12/21/21 05:55 Labs: Abnormal Lab Results - Last 24 Hours (Table) 12/20/21 12/20/21 12/20/21 Range/Units 10:42 10:42 11:49 ABG HCO3 (21-25) mmol/L ABG Total CO2 (19-24) mmol/L ABG O2 Saturation (94-97) % Glucose (74-99) mg/dL POC Glucose (mg/dL) 120 H (75-99) mg/dL Hemoglobin A1c 7.1 H (0.0-6.0) % Calcium (8.4-10.2) mg/dL Total Protein (6.3-8.2) g/dL Albumin (3.5-5.0) g/dL Procalcitonin 2.82 H (0.02-0.09) ng/mL 12/20/21 12/21/21 12/21/21 Range/Units 19:07 00:29 05:45 ABG HCO3 (21-25) mmol/L ABG Total CO2 (19-24) mmol/L ABG O2 Saturation (94-97) % Glucose (74-99) mg/dL POC Glucose (mg/dL) 151 H 123 H 129 H (75-99) mg/dL Hemoglobin A1c (0.0-6.0) % Calcium (8.4-10.2) mg/dL Total Protein (6.3-8.2) g/dL Albumin (3.5-5.0) g/dL Procalcitonin (0.02-0.09) ng/mL 12/21/21 12/21/21 Range/Units 05:54 05:55 ABG HCO3 28 H (21-25) mmol/L ABG Total CO2 30 H (19-24) mmol/L ABG O2 Saturation 97.2 H (94-97) % Glucose 148 H (74-99) mg/dL POC Glucose (mg/dL) (75-99) mg/dL Hemoglobin A1c (0.0-6.0) % Calcium 7.6 L (8.4-10.2) mg/dL Total Protein 5.9 L (6.3-8.2) g/dL Albumin 3.3 L (3.5-5.0) g/dL Procalcitonin (0.02-0.09) ng/mL Assessment and Plan Assessment: * Clinical status epilepticus overnight on 12/20 till 12/21/2021 (had 3 episodes and last episode was 1 am)--resolved * Altered mental status, likely due to toxic metabolic, perhaps some hypoxic encephalopathy, status epilepticus and reasons mentioned below. * Seizure-like activity witnessed. It was reported more tremoring rather than clear-cut seizure on initial presentation. * Polysubstance abuse. Urine drug screen positive for benzodiazepine, cocaine, opiates and tricyclics. * Elevated liver enzymes--resolved * Mildly elevated ammonia 36/32--resolved Plan: * Stat EEG on 12/20/2021 was performed, which is reported as background slowing of moderate to severe degree, consistent with encephalopathy. Some rhythmic delta was seen, which may indicate convulsive tendency. However no clear-cut epileptiform activity was seen. * Patient has 3 seizure-like activity overnight and last episode was [address] Rosa, he recommended the patient to be transferred for terminal supervisor EEG and I do agree. * I increased Keppra from 1000mg to 1500mg bid. * Repeat CT head is ordered by ICU team and is pending. * Placed the patient on thiamine 100mg daily. * On Ativan 1mg PRN for seizure. * Placed on seizure precaution, seizure pads and every hour neuro checks * Watch for signs of opiate withdrawal. * We'll defer the rest of the medical management to the primary and ICU team. I commended the patient to be transferred for long-term EEG. The plan was discussed with the primary team and patient's nurse. Attila Ham M.D. Neuro-hospitalist Time with Patient: Less than 30
[2021-12-21] MEDS ORDERED: THIAMINE 100 MG/ML 2 ML VIAL IVP SCH (11:15)
--- NOTE | 2021-12-21 11:25 | CT ---
EXAMINATION TYPE: CT brain wo con DATE OF EXAM: 12/21/2021 COMPARISON: CT brain from outside institution dated 12/19/2021 HISTORY: Seizures CT DLP: 1107.4 mGycm. Automated Exposure Control for Dose Reduction was Utilized. TECHNIQUE: CT scan of the head is performed without contrast. FINDINGS: There is no acute intracranial hemorrhage, mass effect, or midline shift identified. The ventricles and sulci are within normal limits in size. The globes are intact and the visualized sin uses are clear. Some low-attenuation anterior to the anterior oropharyngeal soft tissues may be relat ed to secretions, endotracheal tube is in place. There are cerebral vascular calcifications. IMPRESSION: No acute intracranial hemorrhage, mass effect, or midline shift is seen. Additional find ings above.
[2021-12-21 11:45] LABS: Glucose,Whole Blood 123 mg/dL (75-99)
--- NOTE | 2021-12-21 12:06 | P.PN ---
Subjective Progress Note Date: 12/21/21 This is a 41-year-old male patient with a known history of hypertension, hyperl ipidemia, diabetes mellitus, anxiety, chronic back pain leading to left leg weakness, chronic and ongoing tobacco dependence. He also has a history of heroin and crack cocaine use in the past. Last evening he was out to dinner with his and while driving home they stopped at his friend's house. He apparently went into the house while she waited in the car and when he came out go back in the car he was soon asleep. She had not initially been concerned because he falls asleep after meals often. Then she was unable to wake him and drove to [place] emergency room where the patient was mainly unresponsive requiring intubation mechanical ventilatory support. He was subsequently transferred to our emergency room and then to the ICU at 4 AM this morning. Current vent settings are assist-control at a rate of 20, tidal been 450, FiO2 50% and a PEEP of 5. Morning blood gases reveal a P O2 of 274, pCO2 47 and a pH of 7.33. That was on 100% FiO2. He is intubated with a #7.5 endotracheal tube which is secured at 24 cm at the lip. He is sedated on propofol 50 mcg/kg/m. He has 0.9 normal saline running at 130 ML's per hour. Urine drug screen did reveal evidence of cocaine, opiates, benzodiazepines, a cyclic antidepressants. CAT scan of the head revealed no significant intracranial abnormality per report from the ER. He is seen in consultation in the ICU. He is arousable. He is moving all fours at times. He is reaching for the endotracheal tube. Sedation has been adjusted. His pupils are pinpoint but reactive and equal. X-ray revealed some evidence of pulmonary interstitial mild airspace edema. Some density of the right lower lobe. He's been initiated on ceftriaxone, clindamycin and azithromycin. White count 19.0. Hemoglobin 15.2. Sodium 139. Potassium 5.6. Chloride 107. Bicarb 22. BUN 21. Creatinine 0.79. Glucose 137. Troponin 0.041. ProBNP 103. Gruber virus by PCR not detected. Pro- calcitonin pending. 12/21/2021, the patient is being seen for a follow-up. This is a 41-year-old male patient who presented to us with drug overdose and being unresponsive. He is known to have hypertension for lipidemia diabetes mellitus and chronic back p ain and he is a smoker. He has history of use of heroin and crack cocaine in the past. Noted the patient has been already intubated and placed on a mechanical ventilator. The patient started having severe episodes yesterday and I started the patient on Trying combination to propofol that he was already receiving for sedation. Nevertheless, overnight, he did have 3 further episodes of seizures. The first episode lasted for 2 minutes and then the second episodes for 10 minutes and the third episode was 5 minutes and the last episode was around 1 AM. Neurology was involved in the case and the patient was given 2 g of IV Dilantin and the patient was also given phenobarbital 1 g and he was given a total of 10 mg Ativan IV push. Currently is still on Keppra 1 g twice a day and Propulsid running at 75 Garrett respiratory per minute. EEG was done yesterday that showed no active seizure activity or ongoing seizure activity. Neurologist on the case. CAT scan of the brain that was done and the hospital was negative. A repeat CAT scan of the brain will be done today. Meanwhile, the patient remains on a mechanical ventilator. This morning is an assist- control mode at the rate of 20, tidal volume of 450, FiO2 of 50% with a PEEP of 5. Blood gases from today shows a pH of 7.41 with a pCO2 of 45 and pO2 of 91. The patient is hemodynamically stable. The triple-lumen catheter was established in his left IJ. An arterial line was also established. He is afebrile. He is covered for aspiration pneumonia with a combination of Rocephin and Clindamycin. The white cell count is at 10.4 with a hemoglobin of 13.3. Rest of the electrodes are all within normal limits. Renal function creatinine is stable at 0.7. Rest electrodes are all within normal limits. LFTs are also within normal. Objective - Vital Signs Vital signs: Vital Signs Temp 98.1 F 12/21/21 08:00 Pulse 68 12/21/21 10:00 Resp 20 12/21/21 10:00 BP 95/59 12/21/21 09:00 Pulse Ox 98 12/21/21 10:00 Intake & Output 12/20/21 12/21/21 12/21/21 18:59 06:59 18:59 Intake Total 5703.702 6836.007 600 Output Total 1055 1165 170 Balance 365.409 489.007 430 Weight 113.9 kg 118.5 kg Intake: IV 1045 1225 400 Clindamycin 600 mg In 50 Dextrose 5% in Water 50 ml @ 50 mls/hr IVPB Q8H [facility] Rx#:[id number] Phenytoin Sodium Inj 2, 100 000 mg In Sodium Chloride 0.9% 100 ml @ 200 mls/hr IVPB ONCE [facility] Rx#: [id number] Sodium Chloride 0.9% 1, 595 000 ml @ 130 mls/hr IV . Q7H42M [facility] Rx#:[id number] Sodium Chloride 0.9% 1, 450 975 300 000 ml @ 75 mls/hr IV . [id number] [facility] Rx#:[id number] levETIRAcetam IV 1,000 mg 100 100 In Saline 1 100ml.bag @ 400 mls/hr IVPB Q12HR [facility] Rx#:[id number] Intake, IV Titration 375.409 429.007 200 Amount propofoL 1,000 mg In 375.409 429.007 200 Empty Bag 1 bag @ Titrate IV .Q0M [facility] Rx#: [id number] Output: Urine 1055 1165 170 Other: Voiding Method Indwelling Catheter Indwelling Catheter Indwelling Catheter ABP, PAP, CO, CI - Last Documented Arterial Blood Pressure 118/61 - Exam GENERAL EXAM: Intubated, sedated 41-year-old male patient, comfortable in no apparent distress. Orogastric and orotracheal tube are both in place and the patient has a left IJ triple-lumen catheter in place. HEAD: Normocephalic. EYES: Sluggish reaction of pupils, pinpoint, equal. NOSE: Clear with pink turbinates. THROAT: Oral endotracheal and gastric tube secured in place. No erythema or exudates. NECK: No masses, no JVD. CHEST: No chest wall deformity. LUNGS: Equal air entry with few scattered rhonchi, crackles in the right lung base. CVS: S1 and S2 normal with no audible murmur, regular rhythm. ABDOMEN: No hepatosplenomegaly, normal bowel sounds, no guarding or rigidity. SPINE: No scoliosis or deformity SKIN: No rashes CENTRAL NERVOUS SYSTEM: No focal deficits, tone is normal in all 4 extremities. The pupils are around 6-7 mm in size and there is reaction to light. Negative Babinski. Negative clonus. Not withdrawing to painful stimulation. No jerky body movements activity. No selectivity of his current clinical grounds. Reflexes are equal and symmetrical bilaterally. EXTREMITIES: There is no peripheral edema. No clubbing, no cyanosis. Peripheral pulses are intact. - Labs CBC & Chem 7: 12/21/21 05:55 12/21/21 05:55 Labs: Abnormal Lab Results - Last 24 Hours (Table) 12/20/21 12/20/21 12/20/21 Range/Units 10:42 10:42 19:07 ABG HCO3 (21-25) mmol/L ABG Total CO2 (19-24) mmol/L ABG O2 Saturation (94-97) % Glucose (74-99) mg/dL POC Glucose (mg/dL) 151 H (75-99) mg/dL Hemoglobin A1c 7.1 H (0.0-6.0) % Calcium (8.4-10.2) mg/dL Total Protein (6.3-8.2) g/dL Albumin (3.5-5.0) g/dL Procalcitonin 2.82 H (0.02-0.09) ng/mL 12/21/21 12/21/21 12/21/21 Range/Units 00:29 05:45 05:54 ABG HCO3 28 H (21-25) mmol/L ABG Total CO2 30 H (19-24) mmol/L ABG O2 Saturation 97.2 H (94-97) % Glucose (74-99) mg/dL POC Glucose (mg/dL) 123 H 129 H (75-99) mg/dL Hemoglobin A1c (0.0-6.0) % Calcium (8.4-10.2) mg/dL Total Protein (6.3-8.2) g/dL Albumin (3.5-5.0) g/dL Procalcitonin (0.02-0.09) ng/mL 12/21/21 12/21/21 Range/Units 05:55 11:43 ABG HCO3 (21-25) mmol/L ABG Total CO2 (19-24) mmol/L ABG O2 Saturation (94-97) % Glucose 148 H (74-99) mg/dL POC Glucose (mg/dL) 123 H (75-99) mg/dL Hemoglobin A1c (0.0-6.0) % Calcium 7.6 L (8.4-10.2) mg/dL Total Protein 5.9 L (6.3-8.2) g/dL Albumin 3.3 L (3.5-5.0) g/dL Procalcitonin (0.02-0.09) ng/mL Assessment and Plan Plan: 1 Acute hypoxemic respiratory failure requiring intubation mechanical ventilation on 12/19/2021 at an outside facility and subsequent transferred here for further care. There is concern for an underlying aspiration pneumonia. The patient that showed some possible interstitial infiltrates and bibasilar effusions and atelectasis. 2 Altered mental status secondary to suspected drug overdose with urine drug screen positive for cocaine, opiates, benzodiazepines and tricyclic antidepressants 3 polysubstance abuse, along with history of heroin and crack use however the patient's had stated she thought he had not been using seen in quite some time 4 new onset seizure activity that started on 12/20/2021 and the patient had further episodes until 2021 and the patient had 3 episodes last episode being at around 1 AM. The patient was treated accordingly and the patient was given Dilantin, phenobarbital, and IV Keppra. The patient is currently on IV Keppra and propofol infusion. CAT scan of the brain was ordered. The patient also was given Ativan during the seizure episodes. 5 Troponin leak 6 History of hypertension 7 Hyperlipidemia 8 Diabetes mellitus 9 History of anxiety 10 History of degenerative disc disease with left lower extremity weakness Plan: Continue ventilator support and no ventilator changes will be done today Continue Rocephin and clindamycin for possible aspiration pneumonia Watch for any signs of any seizure activity Obtain a CAT scan of the brain Keep the patient propofol 75 mg/kg per minute and continued IV Keppra 1 g every 12 hours Ativan as needed for breakthrough seizures EEG to be repeated today We will initiate the patient on enteral feeding for dizziness supports Triple-lumen catheter was established Arterial line was established We'll continue to follow make further recommendations based on the progress. Critically care evaluation that was on a more than 30 minutes and the case was also discussed with urology. Time with Patient: Greater than 30
--- NOTE | 2021-12-21 12:10 | P.PCN ---
Date of Procedure: 12/21/21 Preoperative Diagnosis: Acute drug overdose Postoperative Diagnosis: Acute drug overdose Procedure(s) Performed: Insertion of arterial line catheter and a triple lumen catheter. Anesthesia: local Surgeon: Jessica Quintana Estimated Blood Loss (ml): 0 Pathology: other Condition: critical Disposition: ICU Operative Findings: Indication: Hemodynamic monitoring/Intravenous access. A time-out was completed verifying correct patient, procedure, site, positioning, and implant(s) or special equipment if applicable. The patient was placed in a dependent position appropriate for central line placement based on the vein to be cannulated. The patient s left neck was prepped and draped in sterile fashion. 1% Lidocaine was used to anesthetize the surrounding skin area. A triple lumen 9F Cordis catheter was introduced into the left internal jugular vein using Seldinger technique. The catheter was threaded smoothly over the guide wire and appropriate blood return was obtained. Each lumen of the catheter was evacuated of air and flushed with sterile saline. The catheter was then sutured in place to the skin and a sterile dressing applied. Perfusion to the extremity distal to the point of catheter insertion was checked and found to be adequate. The patient tolerated the procedure well and there were no complications. Indication: Hemodynamic monitoring. A time-out was completed verifying correct patient, procedure, site, positioning, and implant(s) or special equipment if applicable. Allens test was performed to ensure adequate perfusion. The patient s right wrist was prepped and draped in sterile fashion. 1% Lidocaine was used to anesthetize the area. An 18G Arrow arterial line was introduced into the radial artery. The catheter was threaded over the guide wire and the needle was removed with appropriate pulsatile blood return. Blood loss was minimal. The catheter was then sutured in place to the skin and a sterile dressing applied. Perfusion to the extremity distal to the point of catheter insertion was checked and found to be adequate. The patient tolerated the procedure well and there were no complications.
[2021-12-21 14:57] VITALS: BMI 36.4
[2021-12-21 16:27] VITALS: TEMP 98.3
[2021-12-21 17:44] VITALS: PULSE 75
[2021-12-21] MEDS ORDERED: levETIRAcetam IV 1,500 MG in SALINE 1 100ML.BAG IVPB SCH ×2 (21:00)
--- NOTE | 2021-12-21 21:47 | P.PN ---
Subjective Progress Note Date: 12/21/21 This is a 41 years old male with a known past medical history. Presents intubated. Patient could not provide information. Information were obtained from staff and records. Looks like patient presented with polypharmacy and overdose, he was unresponsive and respiratory failure. He presents with intubation for overdose. As per staff patient went with his for dinner and underwent back they visited a friend who was recently released from [facility], does not know what has been dictated inside his friend house but once he came back he slept in the car and she could not pick him up so she drove him to the emergency room. The recurrent patient was prescribed Cymbalta, Xanax on [place] at home Vitas looks stable here and patient is afebrile. His FiO2 of 50% and saturation 97% Labs showing leukocytosis of 19,000, rest of CBC is unremarkab potassium elevated le. INR 0.9. PH 7.3, pCO2 slightly high as 47 and pO2 of 2. 74. On FiO2 of 100%. Creatinine normal 0.7. Potassium is elevated at 7.8 came down to 5.6. Liver enzymes not significantly elevated, bilirubin is normal 0.8. ProBNP is low 103, TSH is normal 1.4, lipase normal 142, Urine analysis showed 2+ glucose, small blood, no evidence of infection. Troponin is elevated 0.042, lactic acid normal at 1.4, glucose controlled 113 and one 10. Venous pH is slow 7.2 and pCO2 54 and PA-C on 325. Coronavirus not detected. on reviewing [facility] records: Urine drug screen was positive for benzodiazepine, cocaine, opiates and tricyclic antidepressant EKG: Showing sinus tachycardia at 115 with moderate T-wave abnormality consider anterolateral ischemia which was noticed on the the . With QTC 519. Call the test not detected, the rapid test. Urine analysis is 2+ glucose, trace is unremarkable WBCs 21.5, hemoglobin is 14.8, platelet count 281. Sodium 138, potassium 4.4, alcohol 0, amylase 60 which is within the reference range, lipase 151 which is normal, glucose elevated 387, magnesium 2.3, creatinine is 1.3, liver enzymes sl ightly elevated AST 39 and ALT 82, troponin is -0.0. CK is 107 which is within the reference, ammonia slightly elevated 36 As per documentation patient went to the emergency room with his old in front of the EMS secondary today, states that the patient went unresponsive while they are driving home Am[place] patient was abdominally breathing, purple, forming in the mouth, Narcan was given, glucose was 347, patient was breathing approximately 8 times per minute, then another 4 mg of Narcan given. It was improvement in breathing rate went up to 12. Then a third 4 mg of Narcan given. His GCS was 3 therefore patient was intubated CT of the brain showing no evidence of acute CVA intracranial hemorrhage or mass effect per report 12/21/2021 Patient remains mechanical ventilator. Patient did have episodes of seizure- like activity overnight for about 4 times. Neurology was consulted. Patient was given Dilantin loading dose and also started on phenobarbital and Ativan IV. Patient is also on Keppra 1 g twice daily. EEG showed no seizure active seizure activity. Likely toxic encephalopathy picture. CT of the brain showed no acute intracranial abnormality. Patient is also being continued on antibiotics in the form of clindamycin IV and ceftriaxone. Procalcitonin level is elevated. Repeat brain CT was ordered. Neurology recommends continuous EEG monitoring and is planning for transfer to telemetry I did discuss with transfer team and also ICU admitting team at [facility] who accepted the patient and is awaiting for bed availability. Lab data showed WBC 10.4 hemoglobin 13.3 and platelets 182 sodium 138 potassium 3.7 chloride 107 BUN 12 and creatinine 0.7 blood sugar is 129 and albumin is 3.3 Current medications reviewed. Objective - Vital Signs Vital signs: Vital Signs Temp 98.5 F 12/21/21 12:00 Pulse 68 12/21/21 15:00 Resp 20 12/21/21 15:00 BP 95/59 12/21/21 09:00 Pulse Ox 100 12/21/21 15:00 Intake & Output 12/20/21 12/21/21 12/21/21 18:59 06:59 18:59 Intake Total 3377.490 5247.007 865.998 Output Total 1055 1165 315 Balance 365.409 489.007 550.998 Weight 113.9 kg 118.5 kg 118.5 kg Intake: IV 1045 1225 550 Clindamycin 600 mg In 50 Dextrose 5% in Water 50 ml @ 50 mls/hr IVPB Q8H [facility] Rx#:[id number] Phenytoin Sodium Inj 2, 100 000 mg In Sodium Chloride 0.9% 100 ml @ 200 mls/hr IVPB ONCE [facility] Rx#: [id number] Sodium Chloride 0.9% 1, 595 000 ml @ 130 mls/hr IV . Q7H42M [facility] Rx#:[id number] Sodium Chloride 0.9% 1, 450 975 450 000 ml @ 75 mls/hr IV . [id number] [facility] Rx#:[id number] levETIRAcetam IV 1,000 mg 100 100 In Saline 1 100ml.bag @ 400 mls/hr IVPB Q12HR [facility] Rx#:[id number] Intake, IV Titration 375.409 429.007 315.998 Amount propofoL 1,000 mg In 375.409 429.007 315.998 Empty Bag 1 bag @ Titrate IV .Q0M [facility] Rx#: [id number] Output: Urine 1055 1165 315 Other: Voiding Method Indwelling Catheter Indwelling Catheter Indwelling Catheter ABP, PAP, CO, CI - Last Documented Arterial Blood Pressure 136/67 - Exam PHYSICAL EXAMINATION: Patient is currently lying in the bed and on mechanical ventilator... HEENT: Normocephalic. Neck is supple. Pupils reactive. Nostrils clear. Oral cavity is moist. Neck reveals no JVD, carotid bruits, or thyromegaly. CHEST EXAMINATION: Trachea is central. Symmetrical expansion. Lung jimenez clear to auscultation and percussion. CARDIAC: Normal S1, S2 with no gallops. No murmurs ABDOMEN: Soft. Bowel sounds normal. No organomegaly. No abdominal bruits. Extremities: reveal no edema. No clubbing or cyanosis Neurologically patient is nonresponsive. No gross focal deficits noted Skin: No rash or skin lesions. Psychiatric: Could not be assessed at this time. Musculoskeletal: No joint swelling or deformity. - Labs CBC & Chem 7: 12/21/21 05:55 12/21/21 05:55 Labs: Abnormal Lab Results - Last 24 Hours (Table) 12/20/21 12/20/21 12/20/21 Range/Units 10:42 10:42 19:07 ABG HCO3 (21-25) mmol/L ABG Total CO2 (19-24) mmol/L ABG O2 Saturation (94-97) % Glucose (74-99) mg/dL POC Glucose (mg/dL) 151 H (75-99) mg/dL Hemoglobin A1c 7.1 H (0.0-6.0) % Calcium (8.4-10.2) mg/dL Total Protein (6.3-8.2) g/dL Albumin (3.5-5.0) g/dL Procalcitonin 2.82 H (0.02-0.09) ng/mL 12/21/21 12/21/21 12/21/21 Range/Units 00:29 05:45 05:54 ABG HCO3 28 H (21-25) mmol/L ABG Total CO2 30 H (19-24) mmol/L ABG O2 Saturation 97.2 H (94-97) % Glucose (74-99) mg/dL POC Glucose (mg/dL) 123 H 129 H (75-99) mg/dL Hemoglobin A1c (0.0-6.0) % Calcium (8.4-10.2) mg/dL Total Protein (6.3-8.2) g/dL Albumin (3.5-5.0) g/dL Procalcitonin (0.02-0.09) ng/mL 12/21/21 12/21/21 Range/Units 05:55 11:43 ABG HCO3 (21-25) mmol/L ABG Total CO2 (19-24) mmol/L ABG O2 Saturation (94-97) % Glucose 148 H (74-99) mg/dL POC Glucose (mg/dL) 123 H (75-99) mg/dL Hemoglobin A1c (0.0-6.0) % Calcium 7.6 L (8.4-10.2) mg/dL Total Protein 5.9 L (6.3-8.2) g/dL Albumin 3.3 L (3.5-5.0) g/dL Procalcitonin (0.02-0.09) ng/mL Microbiology - Last 24 Hours (Table) 12/20/21 10:42 Blood Culture - Preliminary Blood No Growth after 24 hours Assessment and Plan Assessment: Acute hypoxic respiratory failure [facility] Metabolic/toxic encephalopathy Possible enthesopathy is being also considered. Acute multiple seizure-like episodes overnight. Drug overdose is suspected with urine drug screen was positive for benzodiazepine, cocaine, opiates and tricyclic antidepressant Elevated troponin Hyperkalemia, mild Elevated lactic acid, came back to normal Plan: This is a 41 years old male who presents with a EMS and respiratory failure status post intubation, drug overdose is suspected. Possible transfer to patient care facility for continuous EEG monitoring. Continue with mechanical ventilation with pulmonary/critical care team Continue with IV fluids normal saline Check echocardiogram and cardiology consult Continue with antibiotic, currently on ceftriaxone and clindamycin, and Zithromax check B12, folate, ammonia level, TSH, blood culture , Procalcitonin Repeat chest x-rays and medication were reviewed.. Monitor lytes and vitals. DVT and GI prophylaxis. DVT prophylaxis: SubcLovenox GI Prophylaxis: Pepcid Prognosis is guarded Time with Patient: Greater than 30
== END 2021-12-21 17:45 | disposition short-term general hospital (02) | DRG 917 ==
LOC: EC 01:24 → 2SICU 01:35
PROVIDERS: ADMIT Hospitalist; ATTEND Hospitalist
PROC: 5A1935Z Respiratory Ventilation, Less than 24 Consecutive Hours (ICD-10-PCS; 2021-12-20)
PROC: 03HY32Z Insertion of Monitoring Device into Upper Artery, Percutaneous Approach (ICD-10-PCS; principal; 2021-12-21)
PROC: 4A133B1 Monitoring of Arterial Pressure, Peripheral, Percutaneous Approach (ICD-10-PCS; principal; 2021-12-21)
PROC: 02HV33Z Insertion of Infusion Device into Superior Vena Cava, Percutaneous Approach (ICD-10-PCS; principal; 2021-12-21)
PROC: 4A133J1 Monitoring of Arterial Pulse, Peripheral, Percutaneous Approach (ICD-10-PCS; principal; 2021-12-21)
DX: T40.2X1A Poisoning by other opioids, accidental (unintentional), initial encounter (principal); G92.8 Other toxic encephalopathy; J96.01 Acute respiratory failure with hypoxia; E87.2 Acidosis; G93.1 Anoxic brain damage, not elsewhere classified; E78.00 Pure hypercholesterolemia, unspecified; E11.40 Type 2 diabetes mellitus with diabetic neuropathy, unspecified; E78.5 Hyperlipidemia, unspecified; F14.10 Cocaine abuse, uncomplicated; E87.5 Hyperkalemia; R77.8 Other specified abnormalities of plasma proteins; F32.A Depression, unspecified; F11.21 Opioid dependence, in remission; F41.9 Anxiety disorder, unspecified; M79.606 Pain in leg, unspecified; M54.16 Radiculopathy, lumbar region; D72.829 Elevated white blood cell count, unspecified; Z20.822 Contact with and (suspected) exposure to COVID-19; F17.210 Nicotine dependence, cigarettes, uncomplicated; G40.909 Epilepsy, unspecified, not intractable, without status epilepticus; G89.29 Other chronic pain; I10 Essential (primary) hypertension; Z79.1 Long term (current) use of non-steroidal anti-inflammatories (NSAID); Z79.84 Long term (current) use of oral hypoglycemic drugs; Z79.899 Other long term (current) drug therapy; Z82.3 Family history of stroke; Z83.3 Family history of diabetes mellitus; Z88.0 Allergy status to penicillin; Z80.9 Family history of malignant neoplasm, unspecified; Z98.890 Other specified postprocedural states
CPT/HCPCS: 36415; 36600; 70450; 71045; 80053; 81001; 82140; 82607; 82746; 82803; 82805; 83036; 83605; 83690; 83735; 83880; 84100; 84145; 84443; 84484; 85025; 85610; 85730; 87040; 87635; 93005; 93306; 94002; 94003; 95822; 99291